=== PATIENT | male | born 1950 | race Two or more races ===

== ENCOUNTER 2021-06-06 09:25 | Day surgery (SDC) | payer MEDICARE, MEDICAID ==
[~2021-06-06 09:25] MED LIST: ASPI-1450 PO; ATOR40TA28 PO; METO25XL PO
[2021-06-06] MEDS ORDERED: SODIUM CHLORIDE 0.9% 1,000 ML IV ONE (10:00)
[2021-06-06] MEDS ORDERED: DiphenhydrAMINE HCL 50 MG CAPSULE ONE (10:14)
[2021-06-06] MEDS ORDERED: SODIUM CHLORIDE 0.9% 1,000 ML ONE (10:14)
[2021-06-06] MEDS ORDERED: DIAZEPAM 5 MG TABLET ONE (10:14)
[2021-06-06] MEDS ORDERED: ASPIRIN 81 MG CHEWABLE TABLET ONE (10:15)
[2021-06-06] MEDS ORDERED: DIAZEPAM 5 MG TABLET PO ONE (10:45)
[2021-06-06] MEDS ORDERED: DiphenhydrAMINE HCL 50 MG CAPSULE PO ONE (10:45)
[2021-06-06] MEDS ORDERED: ASPIRIN 81 MG CHEWABLE TABLET PO ONE (10:45)
[2021-06-06 12:01] LABS: GLUCOMETER DEV NAME(LOC) SDS.; GLUCOSE,POINT OF CARE 90 MG/DL (70-110)
[2021-06-06] MEDS ORDERED: SODIUM BICARBONATE 50 MEQ/50 ML VIAL ONE (13:14)
[2021-06-06] MEDS ORDERED: LIDOCAINE/PF 1% 30 ML VIAL ONE ×2 (13:14→13:50)
[2021-06-06] MEDS ORDERED: IOHEXOL 300 MG/ML 150 ML VIAL ONE (13:14)
[2021-06-06] MEDS ORDERED: HEPARIN SODIUM 1000 UNITS/NS 1,000 ML ONE (13:15)
[2021-06-06] MEDS ORDERED: FentaNYL CITRATE PF 100 MCG/2 ML VIAL ONE ×2 (13:29→13:48)
[2021-06-06] MEDS ORDERED: MIDAZOLAM HCL 2 MG/2 ML VIAL ONE ×2 (13:29→13:48)
[2021-06-06 13:32] VITALS: BP 146/71
[2021-06-06] MEDS ORDERED: LIDOCAINE 1% 30 ML/SOD BICARB 8.4% 4 ML SQ ONE (14:15)
[2021-06-06] MEDS ORDERED: HEPARIN SODIUM 1000 UNITS/NS 1,000 ML IARTER ONE (14:15)
[2021-06-06] MEDS ORDERED: MIDAZOLAM HCL 2 MG/2 ML VIAL IVP ONE ×3 (14:15)
[2021-06-06] MEDS ORDERED: IOHEXOL 300 MG/ML 150 ML VIAL IARTER ONE (14:15)
[2021-06-06] MEDS ORDERED: FentaNYL CITRATE PF 100 MCG/2 ML VIAL IVP ONE ×3 (14:15)
[2021-06-06 14:26] VITALS: BP 102/57
== END 2021-06-06 18:30 | disposition home or self-care (01) ==
LOC: CATHLAB 09:25
PROVIDERS: ATTEND Internal Medicine Interventional Cardiology
DX: T82.855A Stenosis of coronary artery stent, initial encounter (principal); I25.10 Atherosclerotic heart disease of native coronary artery without angina pectoris; I25.2 Old myocardial infarction; I10 Essential (primary) hypertension; E78.5 Hyperlipidemia, unspecified; E11.39 Type 2 diabetes mellitus with other diabetic ophthalmic complication; H42 Glaucoma in diseases classified elsewhere; F41.9 Anxiety disorder, unspecified; Z98.890 Other specified postprocedural states; Z88.8 Allergy status to other drugs, medicaments and biological substances; Z79.899 Other long term (current) drug therapy; Z83.3 Family history of diabetes mellitus; Z82.49 Family history of ischemic heart disease and other diseases of the circulatory system; Y83.8 Other surgical procedures as the cause of abnormal reaction of the patient, or of later complication, without mention of misadventure at the time of the procedure; Y92.89 Other specified places as the place of occurrence of the external cause
CPT/HCPCS: 82962; 93005; 93458; 99152; C1760; C1887; J1644; J2250; J3010; J3490 ×2; J7030; Q9967; 37236; 92920; 92921; 92928

== ENCOUNTER 2021-11-20 07:13 | Day surgery (SDC) | payer MEDICARE, MEDICAID ==
[~2021-11-20] VITALS: Ht 175.3 cm; Wt 91.8 kg
[~2021-11-20 07:13] MED LIST changes: +ASPI-1444 PO; -ASPI-1450 PO; +BACI28OI29 TP; +DORZ10DR10 OU; +EMPA10TA3 PO; +EZET10TA57 PO; +FLUO20CA36 PO; +INSNOV SQ; +INSU300I3 SQ; +ISOS30TA92 PO; +LOSA-382 PO; +METF-1211 PO; +NITR0.4T50 SL; +PIOG15TA66 PO; +PRAS10TA20 PO; +RANO500T3 PO; +SODIUM CHLORIDE 0.9% 1,000 ML IV ONE; +[UNRECOGNIZED DRUG - CODE] TP
[2021-11-20] MEDS ORDERED: SODIUM CHLORIDE 0.9% 1,000 ML ONE (07:42)
[2021-11-20] MEDS ORDERED: ASPIRIN 81 MG CHEWABLE TABLET ONE (08:00)
[2021-11-20] MEDS ORDERED: DIAZEPAM 5 MG TABLET ONE (08:00)
[2021-11-20] MEDS ORDERED: DiphenhydrAMINE HCL 50 MG CAPSULE ONE (08:01)
[2021-11-20 08:56] LABS: GLUCOMETER DEV NAME(LOC) SDS.; GLUCOSE,POINT OF CARE 197 MG/DL (70-110)
[2021-11-20] MEDS ORDERED: DIAZEPAM 5 MG TABLET PO ONE (09:00)
[2021-11-20] MEDS ORDERED: ASPIRIN 81 MG CHEWABLE TABLET PO ONE (09:00)
[2021-11-20] MEDS ORDERED: DiphenhydrAMINE HCL 50 MG CAPSULE PO ONE (09:00)
[2021-11-20] MEDS ORDERED: HEPARIN SODIUM 1000 UNITS/NS 1,000 ML ONE (11:28)
[2021-11-20] MEDS ORDERED: LIDOCAINE/PF 1% 30 ML VIAL ONE (11:28)
[2021-11-20] MEDS ORDERED: SODIUM BICARBONATE 50 MEQ/50 ML VIAL ONE (11:28)
[2021-11-20] MEDS ORDERED: IOHEXOL 300 MG/ML 50 ML VIAL ONE ×4 (11:28→12:12)
[2021-11-20 11:32] VITALS: BP 154/69
[2021-11-20] MEDS ORDERED: FentaNYL CITRATE PF 100 MCG/2 ML VIAL ONE (11:40)
[2021-11-20] MEDS ORDERED: MIDAZOLAM HCL 2 MG/2 ML VIAL ONE (11:40)
[2021-11-20] MEDS ORDERED: HEPARIN SODIUM 1000 UNITS/NS 1,000 ML IARTER ONE (12:15)
[2021-11-20] MEDS ORDERED: MIDAZOLAM HCL 2 MG/2 ML VIAL IVP ONE ×2 (12:15)
[2021-11-20] MEDS ORDERED: FentaNYL CITRATE PF 100 MCG/2 ML VIAL IVP ONE ×3 (12:15→12:30)
[2021-11-20] MEDS ORDERED: LIDOCAINE 1% 30 ML/SOD BICARB 8.4% 4 ML SQ ONE (12:15)
[2021-11-20] MEDS ORDERED: HEPARIN SODIUM,PORCINE 5,000 UNITS/ML VIAL IVP ONE (12:15)
[2021-11-20] MEDS ORDERED: IOHEXOL 300 MG/ML 50 ML VIAL IARTER ONE ×2 (12:15)
[2021-11-20] MEDS ORDERED: PRASUGREL HCL 10 MG TABLET ONE (12:35)
[2021-11-20 12:37] VITALS: BP 123/64
[2021-11-20] MEDS ORDERED: PRASUGREL HCL 10 MG TABLET PO ONE (12:45)
== END 2021-11-20 17:35 | disposition home or self-care (01) ==
LOC: CATHLAB 07:13
PROVIDERS: ATTEND Internal Medicine Interventional Cardiology
DX: R07.9 Chest pain, unspecified (principal); I25.10 Atherosclerotic heart disease of native coronary artery without angina pectoris; E11.9 Type 2 diabetes mellitus without complications; D64.9 Anemia, unspecified
CPT/HCPCS: 82962; 99152; 99153; 93005; 92978; 92979; 93454; C9600; C1757; C1887; C1760; C1874; J3010; J1644; J3490 ×2; J2250; J7030; Q9967; C1753; 75960; 92928